=== PATIENT | female | born 2000 | race Caucasian/White ===

== ENCOUNTER 2020-12-15 17:30 | Emergency (ER) | payer MEDICAID ==
[~2020-12-15] VITALS: Ht 165.1 cm; Wt 54.0 kg
[2020-12-15 18:33] LABS: BASOPHILS % 1.2 % (0.0-2.0); EOSINOPHILS % 0.5 % (0.0-5.0); HEMATOCRIT. 39.2 % (36.0-48.0); LYMPHOCYTES % 34.5 % (20.0-50.0); MEAN CORPUSCULAR HEMOGLOBIN 32.7 pg (28.0-32.0); MEAN CORPUSCULAR VOLUME 91.3 fL (81.0-99.0); MEAN PLATELET VOLUME 8.1 fl (7.4-10.4); MONOCYTES % 7.8 % (2.0-8.0); PLATELET 223 x1000/uL (130-400); RED BLOOD CELL COUNT 4.29 mill/uL (4.2-5.4); RED CELL DISTRIBUTION WIDTH 12.5 % (11.6-14.6)
[2020-12-15 18:34] LABS: CLARITY URINE CLOUDY (CLEAR); COLOR URINE YELLOW (YELLOW); KETONES URINE NEGATIVE (NEGATIVE); LEUKOCYTE ESTERASE URINE NEGATIVE (NEGATIVE); NITRITE URINE NEGATIVE (NEGATIVE); OCCULT BLOOD URINE NEGATIVE (NEGATIVE); PROTEIN URINE NEGATIVE (NEGATIVE); SPECIFIC GRAVITY URINE 1.023 (1.005-1.030)
[2020-12-15 18:40] LABS: CHLORIDE 108 mEq/L (98-107); HCG SCREEN POSITIVE
[2020-12-15 18:42] LABS: PROTHROMBIN TIME 10.4 sec (9.6-11.0)
[2020-12-15 18:44] LABS: *AMPHETAMINES SCREEN URINE NEGATIVE (NEGATIVE); *BARBITURATES SCREEN URINE NEGATIVE (NEGATIVE); *BENZODIAZEPINES SCREEN URINE NEGATIVE (NEGATIVE); *COCAINE SCREEN URINE NEGATIVE (NEGATIVE); METHADONE URINE SCREEN NEGATIVE (NEGATIVE); OPIATES URINE SCREEN NEGATIVE (NEGATIVE)
[2020-12-15 18:45] LABS: CANNABINOID URINE SCREEN NEGATIVE (NEGATIVE); PHENCYCLIDINE URINE SCREEN NEGATIVE (NEGATIVE)
[2020-12-15] MEDS ORDERED: ACETAMINOPHEN 325MG TABLET PO ONE (18:45)
[2020-12-15 20:00] VITALS: BP 94/54
[2020-12-15] MEDS ORDERED: NITR-87 MT (20:20)
[2020-12-15] MEDS ORDERED: PREN-134 PO (20:20)
[2020-12-15] MEDS ORDERED: NITROFURANTOIN 100MG M/M CAPSULE PO NR (20:30)
[2020-12-15] MEDS ORDERED: METRONIDAZOLE 500MG TABLET PO ONE (21:30)
[2020-12-18 07:09] LABS: NEISSERIA GONORRHOEAE NAA Negative (Negative)
== END 2020-12-15 21:48 | disposition home or self-care (01) ==
LOC: ER 17:30
DX: O26.891 Other specified pregnancy related conditions, first trimester (principal); R82.71 Bacteriuria; N89.8 Other specified noninflammatory disorders of vagina; R10.9 Unspecified abdominal pain; Z3A.01 Less than 8 weeks gestation of pregnancy
CPT/HCPCS: 36415; 76801; 80053; 80305; 81003; 81025; 84702; 84703; 85025; 86592; 86593; 86780; 86850; 86900; 87210; 87389; 87491; 87591; 93005; 99285